=== PATIENT | female | born 1945 | race Caucasian/White ===

== ENCOUNTER 2022-05-21 08:01 | Outpatient (CLI) | payer MEDICARE, BC, SELFPAY | END 2022-05-21 08:02 | disposition home or self-care (01) | LOC: AMB 05-29 10:47 | PROVIDERS: PCP Internal Medicine; Visit Provider Family Medicine | DX: E11.649 Type 2 diabetes mellitus with hypoglycemia without coma (principal); R53.1 Weakness | CPT/HCPCS: A0998 ==

== ENCOUNTER 2022-06-16 15:15 | Outpatient (CLI) | payer MEDICARE, BC, SELFPAY ==
[2022-06-16 18:52] LABS: Albumin* 4.3 g/dL (3.3-5.0); Chloride* 104 mmol/L (96-114); Potassium* 4.5 mmol/L (3.6-5.1); Sodium* 139 mmol/L (135-149)
[2022-06-16 18:55] LABS: Alanine Aminotransferase* 11 U/L (4-35); Alkaline Phosphatase* 68 U/L (40-150); Aspartate Amino Transferase* 14 U/L (12-35); Bilirubin Total* 0.2 mg/dL (0.1-1.5); Blood Urea Nitrogen* 17 mg/dL (7-30); Carbon Dioxide* 25 mmol/L (20-32); Cholesterol* 181 mg/dL (90-199); Creatinine* 0.8 mg/dL (0.5-1.5); Estimated Glomerular Filt Rate 76 ml/min; Glucose* 116 mg/dL (60-115); Total Protein* 7.2 g/dL (6.0-8.3); Triglycerides* 287 mg/dL (40-149)
[2022-06-16 18:56] LABS: Calcium* 8.7 mg/dL (8.4-10.6); HDL Cholesterol* 39 mg/dL (>=50); LDL Cholesterol Calculated 85 mg/dL (<100)
== END 2022-06-16 15:16 | disposition home or self-care (01) ==
PROVIDERS: PCP Internal Medicine; Visit Provider Internal Medicine
DX: E11.9 Type 2 diabetes mellitus without complications (principal)
CPT/HCPCS: 80053; 80061; 82043; 82570

== ENCOUNTER 2022-12-21 00:18 | Outpatient (CLI) | payer MEDICARE, BC, SELFPAY | END 2022-12-21 00:19 | disposition home or self-care (01) | LOC: AMB 12-22 13:06 | PROVIDERS: PCP Internal Medicine; Visit Provider Family Medicine | DX: R53.1 Weakness (principal) | CPT/HCPCS: A0998 ==

== ENCOUNTER 2023-01-10 06:24 | Outpatient (CLI) | payer MEDICARE, BC, SELFPAY | END 2023-01-10 06:25 | disposition home or self-care (01) | LOC: AMB 01-11 19:30 | PROVIDERS: PCP Internal Medicine; Visit Provider Internal Medicine | DX: I49.9 Cardiac arrhythmia, unspecified (principal); I10 Essential (primary) hypertension; R42 Dizziness and giddiness | CPT/HCPCS: A0425; A0427 ==

== ENCOUNTER 2023-05-04 01:58 | Outpatient (CLI) | payer MEDICARE, BC, SELFPAY | END 2023-05-04 01:59 | disposition home or self-care (01) | LOC: AMB 05-07 11:26 | PROVIDERS: PCP Internal Medicine; Visit Provider Family Medicine | DX: E16.2 Hypoglycemia, unspecified (principal); R53.1 Weakness | CPT/HCPCS: A0429 ==

== ENCOUNTER 2023-05-09 18:42 | Emergency (ER) | payer MEDICARE, BC, SELFPAY ==
[2023-05-09 18:46] VITALS: BP 150/74; PULSE 70; RESP 16; TEMP 36.4; O2SAT 98
--- NOTE | 2023-05-09 19:20 | ED_ITS ---
HPI - General Adult General Date Seen: 05/09/23 Chief complaint: Back Injury/Pain Stated complaint: terrible back ache Time Seen by Provider: 05/09/23 18:59 Source: patient and family Mode of arrival: ambulatory Limitations: no limitations History of Present Illness HPI narrative: Patient is a 78-year-old here with her for evaluation of low back pain. She has dementia and her helps with the history. Apparently she has been complaining about some low back pain on and off for the past couple of days that was bothering her more tonight which is what prompted him to bring her in. She denies radiating pain, abdominal pain, fevers, night sweats, weakness, numbness, bowel or bladder changes, dysuria, or other acute symptoms. Pain is worsened with movement. She has taken some Tylenol which seems to help some. She does not have a history of significant problems with her back. No recent trauma. Related Data Home Medications Medication Instructions Recorded Confirmed dextrose 40 % oral gel (Glucose 10 g PO Q15M PRN 06/02/22 04/23/23 Gel) aspirin 81 mg tablet,delayed 81 mg PO QDAY 06/16/22 04/23/23 release melatonin 10 mg capsule 20 mg PO QHS 01/27/23 04/23/23 Previous Rx's Medication Instructions Recorded wheat dextrin 3 gram/3.8 gram oral 1.5 g PO QDAY #475 grams 07/22/22 powder (Benefiber Sugar Free (dextrin)) donepezil 10 mg tablet 10 mg PO QDAY #90 tabs 07/23/22 insulin syringe-needle U-100 1 mL #10 ea 12/11/22 30 gauge x 1/2 (UltiCare) metformin 1,000 mg tablet 1,000 mg PO BIDWMEAL #180 tabs 12/11/22 lisinopril 40 mg tablet 40 mg PO DAILY #90 tabs 02/27/23 insulin NPH isoph U-100 human 100 10 unit (0.1 mL) subcut .COMPLEX 04/02/23 unit/mL subcutaneous suspension #10 mL (Humulin N NPH U-100 Insulin (isophane susp)) lidocaine 5 % topical patch 1 patch topical DAILY #15 ea 05/09/23 Allergies Allergy/AdvReac Type Severity Reaction Status Date / Time No Known Drug Allergies Allergy Verified 05/09/23 18:51 Review of Systems Status of ROS: Reports: 10 or more systems reviewed and unremarkable except as noted in History and below PFSH [facility] Surgical History History of tubal ligation ?Z98.51 - Tubal ligation status (ICD-10) History of dilatation and curettage ?Z98.890 - Other specified postprocedural states (ICD-10) History of cataract surgery ?Z98.49 - Cataract extraction status, unspecified eye (ICD-10) History of blepharoplasty ?Z98.890 - Other specified postprocedural states (ICD-10) History of wrist fracture ?Z87.81 - Personal history of (healed) traumatic fracture (ICD-10) Social History Narrative: Hx tobacco use Smoking Status: Former smoker How often do you have a drink containing alcohol: never AUDIT-C Alcohol total score: 0 Non-prescribed substance use: denies use Little interest or pleasure in doing things: not at all Feeling down, depressed, or hopeless: not at all Exam Narrative: Exam Narrative: Vital signs as noted above. In general, an alert, nontoxic elderly woman, she is seated on the edge of the bed. Shifts position without difficulty, was ambulatory to the bathroom. Head: Normocephalic, atraumatic. Eyes: Pupils are equal reactive. Extraocular movements are full. Conjunctivae are normal. ENT: Mucous membranes are moist. Throat is normal. Neck: Supple without lymphadenopathy. Heart: Regular rate and rhythm. No murmur or rub. Lungs: Clear bilaterally. No increased work of breathing, crackles or wheezes. Abdomen: Soft and nontender. No organomegaly. Back: She has some tenderness diffusely across the low back. Extremities: Well perfused. No edema. No calf tenderness. Pulses intact. Neurologic: Patient is alert and oriented to person. Answers questions appropriately. Speech is fluent. Face is symmetric. Moves all extremities equally. Affect: Normal. Skin: Warm and dry. Well perfused. Const: Vital Signs, click to edit/add: Vital Signs - 24 hr 05/09/23 18:46 Temperature 97.5 F L Pulse Rate [Left P ulse Oximeter] 70 Respiratory Rate 16 Blood Pressure [Ri ght Upper Arm] 150/74 H Pulse Oximetry 98 Oxygen Delivery Me thod Room Air Documenting provider has reviewed patient's vital signs: yes Course Course Hospital Course: Given her age and dementia, I am going to check some basic labs, CBC, inflammatory markers, UA. Pain seems to be most likely musculoskeletal in nature without evidence of radiculopathy or red flags on history suggesting she needs urgent imaging. Her does not think she would do well with any stronger pain medications and I agree. Consider lidocaine patch to see if we can get more pain relief that way assuming workup is negative. Labs here are unremarkable, we attempted to get a urine sample couple of times unsuccessfully and she did not want a cath specimen. She does not have any urinary symptoms, does not have flank pain, pain seems to be musculoskeletal. Her white blood cell count is normal at 5.7, mild anemia with hemoglobin of 10.9. Metabolic panel is normal, BUN creatinine are normal, blood sugar is 180 she does have a history of diabetes. Her CRP is less than 0.5. No sign of infection, significant inflammatory changes, neurologic changes. Overall, I think it is reasonable to let her go home with supportive management. Discussed if she starts to develop urinary symptoms or has fevers severe pain etcetera she should be seen again otherwise I would recommend primary care follow-up if not improving over the next week or 2. Vital Signs Vital signs: Initial Vital Signs Temperature 97.5 F L 05/09/23 18:46 Temperature Source Temporal Artery Scan 05/09/23 18:46 Pulse Rate 70 05/09/23 18:46 Respiratory Rate 16 05/09/23 18:46 Blood Pressure 150/74 H 05/09/23 18:46 Blood Pressure Mean 99 05/09/23 18:46 Blood Pressure Position Sitting 05/09/23 18:46 Pulse Oximetry 98 05/09/23 18:46 Oxygen Delivery Method Room Air 05/09/23 18:46 Vital Signs Temperature 97.5 F L 05/09/23 18:46 Pulse Rate 70 05/09/23 18:46 Respiratory Rate 16 05/09/23 18:46 Blood Pressure 150/74 H 05/09/23 18:46 Pulse Oximetry 98 05/09/23 18:46 Oxygen Delivery Method Room Air 05/09/23 18:46 Temperature 97.5 F L 05/09/23 18:46 Pulse Rate 70 05/09/23 18:46 Respiratory Rate 16 05/09/23 18:46 Blood Pressure 150/74 H 05/09/23 18:46 Pulse Oximetry 98 05/09/23 18:46 Oxygen Delivery Method Room Air 05/09/23 18:46 Medical Decision Making Lab Data Labs: Lab Results 05/09/23 Range/Units 19:32 WBC 5.69 (4.50-11.00) K/uL RBC 3.75 L (4.00-5.20) m/uL Hgb 10.9 L (12.0-16.0) gm/dL Hct 34.1 (33.0-51.0) % MCV 91 (80-100) fL MCH 29 (26-34) pg MCHC 32 (32-36) gm/dL RDW Coeff of Dottie 13.1 (11.5-15.5) % Plt Count 377 (140-440) K/uL Neut % (Auto) 42.7 (42.0-72.0) % Lymph % (Auto) 48.3 H (20-44) % [place] % (Auto) 7.4 (0.0-11.0) % Eos % (Auto) 1.1 (0.0-7.0) % Baso % (Auto) 0.5 (0.0-3.0) % Neut # (Auto) 2.43 (1.7-7.0) K/uL Lymph # (Auto) 2.70 (0.90-2.90) K/uL [place] # (Auto) 0.40 (0.00-0.90) K/UL Eos # (Auto) 0.06 (0.00-0.50) K/uL Baso # (Auto) 0.03 (0.00-0.30) K/uL Abs Immat Gran (auto) 0.00 (0.00-0.30) K/uL Imm/Tot Granulo (auto) 0.0 % ESR 6 (2-20) mm/hr Sodium 138 (135-149) mmol/L Potassium 4.5 (3.6-5.1) mmol/L Chloride 104 (96-114) mmol/L Carbon Dioxide 25 (20-32) mmol/L BUN 28 (7-30) mg/dL Creatinine 1.0 (0.5-1.5) mg/dL Estimated GFR 58 ml/min Glucose 180 H (60-115) mg/dL Calcium 8.6 (8.4-10.6) mg/dL C-Reactive Protein < 0.5 L (0.5-1.0) mg/dL Discharge Plan Discharge Clinical Impression: Low back pain Patient Disposition: Home w/ Parent or Adult Condition: Stable Instructions: Acute Low Back Pain (ED) Additional Instructions: Continue with Tylenol, 1000 mg 3 times daily. Lidocaine patches as prescribed. If urinary symptoms develop, return or see your clinic to have a urine sample checked as we were not able to do that tonight. For new symptoms such as severe uncontrolled pain, fevers, weakness, return at any time. Primary care follow-up if not improving over the next 1-2 weeks. Prescriptions: New lidocaine 5 % adhesive patch,medicated 1 patch topical DAILY Qty: 15 0RF Rx Instructions: leave on most painful area for up to 12 hrs No Action melatonin 10 mg capsule 20 mg PO QHS aspirin 81 mg tablet,delayed release (DR/EC) 81 mg PO QDAY dextrose [Glucose Gel] 40 % gel 10 g PO Q15M PRN Rx Instructions: until symptoms of low blood sugar are controlled Benefiber Sugar Free (dextrin) 3 gram/3.8 gram powder 1.5 g PO QDAY Qty: 475 3RF Rx Instructions: mix into at least 4 oz water or juice before administering donepezil 10 mg tablet 10 mg PO QDAY Qty: 90 3RF metformin 1,000 mg tablet 1,000 mg PO BIDWMEAL Qty: 180 3RF Patient Comments: TAKE ONE TABLET BY MOUTH TWICE A DAY WITH MEALS (DME) insulin syringe-needle U-100 [UltiCare] 1 mL 30 gauge x 1/2 syringe See Rx Instructions .ROUTE .MEDSUPPLY Qty: 10 12RF Rx Instructions: As directed lisinopril 40 mg tablet 40 mg PO DAILY Qty: 90 1RF Humulin N NPH U-100 Insulin 100 unit/mL suspension 10 unit subcut .COMPLEX Qty: 10 2RF Rx Instructions: 10 units subcutaneously QAM, QPM; Follow Up/Referrals: Monika Del Rio MD [Primary Care Provider] - Stand Alone Forms: [facility] Info Instructions
[2023-05-09 19:35] LABS: Basophils Absolute Auto 0.03 K/uL (0.00-0.30); Basophils Percent Auto 0.5 % (0.0-3.0); Eosinophils Absolute Auto 0.06 K/uL (0.00-0.50); Eosinophils Percent Auto 1.1 % (0.0-7.0); Hematocrit 34.1 % (33.0-51.0); Hemoglobin* 10.9 gm/dL (12.0-16.0); Lymphocytes Percent Auto 48.3 % (20-44); Mean Corpuscular HGB Conc 32 gm/dL (32-36); Mean Corpuscular Hemoglobin 29 pg (26-34); Mean Corpuscular Volume 91 fL (80-100); Monocytes Percent Auto 7.4 % (0.0-11.0); Neutrophils Absolute Auto 2.43 K/uL (1.7-7.0); Neutrophils Percent Auto 42.7 % (42.0-72.0); Platelet Count* 377 K/uL (140-440); RDW Coefficient of Variation % 13.1 % (11.5-15.5); Red Blood Count 3.75 m/uL (4.00-5.20); White Blood Count* 5.69 K/uL (4.50-11.00)
[2023-05-09 19:37] LABS: Slide Review Reflex No
[2023-05-09 19:49] LABS: Chloride* 104 mmol/L (96-114); Sodium* 138 mmol/L (135-149)
[2023-05-09 19:50] LABS: Potassium* 4.5 mmol/L (3.6-5.1)
[2023-05-09 19:52] LABS: Estimated Glomerular Filt Rate 58 ml/min
[2023-05-09 19:53] LABS: Blood Urea Nitrogen* 28 mg/dL (7-30); Carbon Dioxide* 25 mmol/L (20-32); Glucose* 180 mg/dL (60-115)
[2023-05-09 19:54] LABS: Calcium* 8.6 mg/dL (8.4-10.6)
[2023-05-09 19:57] LABS: C Reactive Protein* < 0.5 mg/dL (0.5-1.0)
[2023-05-09 20:15] LABS: Erythrocyte SedimentationRate* 6 mm/hr (2-20)
[2023-05-09] MEDS: LIDOCAINE 5% PATCH 1 PATCH TRANSDERMA (20:38)
== END 2023-05-09 20:54 | disposition home or self-care (01) ==
PROVIDERS: Emergency Provider Emergency Medicine; PCP Internal Medicine
DX: M54.50 Low back pain, unspecified (principal)
CPT/HCPCS: 36415; 80048; 81001; 85025; 85651; 86140; 99283; 99284; A9270

== ENCOUNTER 2023-05-10 15:28 | Emergency (ER) | payer MEDICARE, BC, SELFPAY ==
[2023-05-10 15:41] VITALS: BP 146/71; PULSE 83; RESP 15; TEMP 36.1; O2SAT 99; BMI 26.0
--- NOTE | 2023-05-10 16:05 | ED_ITS ---
HPI - Headache General Chief Complaint: Headache/Migraine Stated Complaint: headache Time Seen by Provider: 05/10/23 15:29 History of Present Illness HPI Narrative: This 78-year-old female comes in reporting headache. She has significant dementia and her story is not very clear as result. She was seen yesterday in this emergency department because of back pain. She had labs done at that time which returned with reassuring results. She was treated for back pain and she states that that is better now. She complains of pain in the frontal part of her head currently. She does not report any neck pain. She arrives with normal vital signs. Related Data Home Medications Medication Instructions Recorded Confirmed dextrose 40 % oral gel (Glucose 10 g PO Q15M PRN 06/02/22 04/23/23 Gel) aspirin 81 mg tablet,delayed 81 mg PO QDAY 06/16/22 04/23/23 release melatonin 10 mg capsule 20 mg PO QHS 01/27/23 04/23/23 Previous Rx's Medication Instructions Recorded wheat dextrin 3 gram/3.8 gram oral 1.5 g PO QDAY #475 grams 07/22/22 powder (Benefiber Sugar Free (dextrin)) donepezil 10 mg tablet 10 mg PO QDAY #90 tabs 07/23/22 insulin syringe-needle U-100 1 mL #10 ea 12/11/22 30 gauge x 1/2 (UltiCare) metformin 1,000 mg tablet 1,000 mg PO BIDWMEAL #180 tabs 12/11/22 lisinopril 40 mg tablet 40 mg PO DAILY #90 tabs 02/27/23 insulin NPH isoph U-100 human 100 10 unit (0.1 mL) subcut .COMPLEX 04/02/23 unit/mL subcutaneous suspension #10 mL (Humulin N NPH U-100 Insulin (isophane susp)) lidocaine 5 % topical patch 1 patch topical DAILY #15 ea 05/09/23 Allergies Allergy/AdvReac Type Severity Reaction Status Date / Time No Known Drug Allergies Allergy Verified 05/09/23 18:51 Review of Systems Status of ROS: Reports: 10 or more systems reviewed and unremarkable except as noted in History and below Narrative: Review of systems is limited given the patient's dementia. PFSH [facility] Surgical History History of tubal ligation ?Z98.51 - Tubal ligation status (ICD-10) History of dilatation and curettage ?Z98.890 - Other specified postprocedural states (ICD-10) History of cataract surgery ?Z98.49 - Cataract extraction status, unspecified eye (ICD-10) History of blepharoplasty ?Z98.890 - Other specified postprocedural states (ICD-10) History of wrist fracture ?Z87.81 - Personal history of (healed) traumatic fracture (ICD-10) Social History Narrative: Hx tobacco use Smoking Status: Former smoker How often do you have a drink containing alcohol: never AUDIT-C Alcohol total score: 0 Non-prescribed substance use: denies use Little interest or pleasure in doing things: not at all Feeling down, depressed, or hopeless: not at all Exam Narrative: Exam Narrative: Constitutional: Well-developed, well-nourished, no acute distress. HEENT: Normocephalic, atraumatic. Neck: Normal range of motion. Nontender. Supple. Heart: Regular. No murmurs. Normal rate. Intact distal pulses. Lungs: Clear to auscultation. No chest discomfort. No wheezes, rhonchi, or rales. Abdomen: Normal bowel sounds. Nontender. No rebound tenderness. Genitalia: Deferred. Back: No midline tenderness. Normal range of motion. Extremities: Normal range of motion. No injury. Skin: Intact. No rash. Warm. No erythema or pallor. Neurologic: No altered sensation. No weakness. Alert and oriented. Psychiatric: No suicidality. No anxiety or depression. No insomnia. Nursing notes and vitals signs are reviewed. Const: Vital Signs, click to edit/add: Vital Signs - 24 hr 05/10/23 15:41 Temperature 96.9 F L Pulse Rate [Pulse Oximeter] 83 Respiratory Rate 15 Blood Pressure [Ri ght Upper Arm] 146/71 H Pulse Oximetry 99 Course Vital Signs Vital signs: Initial Vital Signs Temperature 96.9 F L 05/10/23 15:41 Temperature Source Temporal Artery Scan 05/10/23 15:41 Pulse Rate 83 05/10/23 15:41 Respiratory Rate 15 05/10/23 15:41 Blood Pressure 146/71 H 05/10/23 15:41 Blood Pressure Mean 96 05/10/23 15:41 Pulse Oximetry 99 05/10/23 15:41 Vital Signs Temperature 96.9 F L 05/10/23 15:41 Pulse Rate 83 05/10/23 15:41 Respiratory Rate 15 05/10/23 15:41 Blood Pressure 146/71 H 05/10/23 15:41 Pulse Oximetry 99 05/10/23 15:41 Temperature 96.9 F L 05/10/23 15:41 Pulse Rate 83 05/10/23 15:41 Respiratory Rate 15 05/10/23 15:41 Blood Pressure 146/71 H 05/10/23 15:41 Pulse Oximetry 99 05/10/23 15:41 MDM - Headache MDM Narrative Medical decision making narrative: This patient comes in with her reporting a headache as described above. She states she does not normally get headaches. She does have dementia and is a rather poor historian. Her states that they when out to walk the dog and she turned around and went back in because of her headache. She is not showing any neurologic deficits. I did order CT scan of her head which returns with no acute findings. The patient did receive an intramuscular injection of Toradol 15 mg and an oral tablet of Zofran 4 mg. She is saying that she is feeling much better. At the time of discharge the patient appears safe for outpatient management. The treatment plan is reviewed along with written and verbal return precautions. Reasons to return and the importance of close followup were also reviewed. Imaging Data CT scan - head: Radiologist's impression: No acute intracranial process identified. Discharge Plan Discharge Clinical Impression: Headache Patient Disposition: Home w/ Parent or Adult Condition: Improved Additional Instructions: Continue current plans. Use [id number] medicines as needed and directed. Follow up with MD or return if worsening. Prescriptions: No Action melatonin 10 mg capsule 20 mg PO QHS aspirin 81 mg tablet,delayed release (DR/EC) 81 mg PO QDAY lidocaine 5 % adhesive patch,medicated 1 patch topical DAILY Qty: 15 0RF Rx Instructions: leave on most painful area for up to 12 hrs dextrose [Glucose Gel] 40 % gel 10 g PO Q15M PRN Rx Instructions: until symptoms of low blood sugar are controlled Benefiber Sugar Free (dextrin) 3 gram/3.8 gram powder 1.5 g PO QDAY Qty: 475 3RF Rx Instructions: mix into at least 4 oz water or juice before administering donepezil 10 mg tablet 10 mg PO QDAY Qty: 90 3RF metformin 1,000 mg tablet 1,000 mg PO BIDWMEAL Qty: 180 3RF Patient Comments: TAKE ONE TABLET BY MOUTH TWICE A DAY WITH MEALS (DME) insulin syringe-needle U-100 [UltiCare] 1 mL 30 gauge x 1/2 syringe See Rx Instructions .ROUTE .MEDSUPPLY Qty: 10 12RF Rx Instructions: As directed lisinopril 40 mg tablet 40 mg PO DAILY Qty: 90 1RF Humulin N NPH U-100 Insulin 100 unit/mL suspension 10 unit subcut .COMPLEX Qty: 10 2RF Rx Instructions: 10 units subcutaneously QAM, QPM; Follow Up/Referrals: Monika Del Rio MD [Primary Care Provider] - Stand Alone Forms: [facility] Info Instructions
--- NOTE | 2023-05-10 16:17 | CRLHL7_ITS ---
For Patients: As a result of the Century Cures Act, medical imaging exams and procedure reports are released immediately into your electronic medical record. You may view this report before your referring provider. If you have questions, please contact your health care provider. INDICATION: Headache, dementia.. TECHNIQUE: Head CT without contrast. COMPARISON: None. FINDINGS: CSF spaces: Within normal limits for age. Brain parenchyma and extra-axial spaces: There are nonspecific low attenuation white matter changes consistent with chronic microvascular disease. Bilateral basal ganglia calcifications likely senescent. Mild diffuse atrophy. No sign of mass, hemorrhage, or midline shift. Skull base and calvarium: The visualized paranasal sinuses and mastoid air cells demonstrate no acute or significant findings. The visualized orbits are grossly unremarkable. No skull fractures. IMPRESSION: No acute intracranial process identified. Please note that all CT scans at this facility use dose modulation, iterative reconstruction, and/or weight-based dosing when appropriate to reduce radiation dose to as low as reasonably achievable. Dictated by Javier Walton MD @ 05/10/2023 5:34:18 PM (Electronically Signed)
[2023-05-10] MEDS: ONDANSETRON ODT 4 MG TAB PO (16:45)
[2023-05-10] MEDS: KETOROLAC 15 MG/ML inj IM (16:45)
== END 2023-05-10 17:53 | disposition home or self-care (01) ==
PROVIDERS: Emergency Provider Emergency Medicine Emergency Medical Services; PCP Internal Medicine
DX: R51.9 Headache, unspecified (principal)
CPT/HCPCS: 70450; 96372; 99284; A9270; J1885

== ENCOUNTER 2023-05-25 16:55 | Outpatient (CLI) | payer MEDICARE, BC, SELFPAY | END 2023-05-25 16:56 | disposition home or self-care (01) | LOC: AMB 05-28 11:35 | PROVIDERS: PCP Internal Medicine; Visit Provider Student in an Organized Health Care Education/Training Program | DX: F03.90 Unspecified dementia, unspecified severity, without behavioral disturbance, psychotic disturbance, mood disturbance, and anxiety (principal) | CPT/HCPCS: A0425; A0429 ==

== ENCOUNTER 2023-05-25 17:07 | Emergency (ER) | payer MEDICARE, BC, SELFPAY ==
[2023-05-25] VITALS (10 sets, daily range): BP systolic 128–132; BP diastolic 67–85; PULSE 58–65; RESP 14; TEMP 36.6; O2SAT 96–100
--- NOTE | 2023-05-25 17:29 | CRLHL7_ITS ---
For Patients: As a result of the Century Cures Act, medical imaging exams and procedure reports are released immediately into your electronic medical record. You may view this report before your referring provider. If you have questions, please contact your health care provider. INDICATION: Stroke-like symptoms. TECHNIQUE: CT of the head without contrast. Coronal and sagittal reformats are included. COMPARISON: Head CT from 05/10/2023. FINDINGS: No CT evidence of acute cortical infarct. No loss of rolon white matter differentiation. No hyperdense vessels to suggest intracranial thrombus. No acute intracranial hemorrhage. No mass effect or midline shift. No hydrocephalus or extra-axial collections. Patchy white matter hypoattenuation, typical for chronic microvascular ischemic changes. Moderate generalized parenchymal volume loss. Physiologic calcifications basal ganglia. No acute osseous abnormalities. Mastoid air cells and paranasal sinuses are clear. Normal soft tissues. IMPRESSION: IMPRESSION:1. No CT evidence of acute cortical infarct. No acute intracranial hemorrhage. No other acute intracranial findings. I discussed the findings directly with Dr. Chatman at 6:09 p.m., 05/25/2023. Please note that all CT scans at this facility use dose modulation, iterative reconstruction, and/or weight-based dosing when appropriate to reduce radiation dose to as low as reasonably achievable. Dictated by Juanito Escudero MD @ 05/25/2023 6:09:44 PM (Electronically Signed)
--- NOTE | 2023-05-25 17:34 | ED.NURSE ---
1710: Pt arrives by EMS and is immediately triaged. 1715: Stroke Code called with discretion of Sharon AHMADI Telestroke Neurologist MD abiola in room to assess pt. 1719: Pt in CT.
--- NOTE | 2023-05-25 17:36 | CRLHL7_ITS ---
For Patients: As a result of the Century Cures Act, medical imaging exams and procedure reports are released immediately into your electronic medical record. You may view this report before your referring provider. If you have questions, please contact your health care provider. DATE: 05/25/2023 CLINICAL HISTORY: Patient with focal neurological deficits. TECHNIQUE: Standard helical CT image acquisition through the intracranial circulation following intravenous administration of contrast material with bolus tracking. 2D and 3D MIP images for post-processing were performed and interpreted on an independent workstation and 3D images were permanently archived. COMPARISON: CT same day. FINDINGS: There is no cerebral aneurysm or large vessel occlusion. The right internal carotid artery is normal. The right middle cerebral artery and its branches are normal. The right anterior cerebral artery and its branches are normal. The left internal carotid artery is normal. The left middle cerebral artery and its branches are normal. The left anterior cerebral artery and its branches are normal. The anterior communicating artery is well visualized and appears normal. The right vertebral artery and PICA are normal. The left vertebral artery and PICA are normal. The vertebral arteries are codominant. The basilar artery is patent and appears normal. The right posterior cerebral artery is normal. The left posterior cerebral artery is normal. IMPRESSION: Normal CT angiogram of the head without intracranial aneurysm or other neurovascular abnormality. Please note that all CT scans at this facility use dose modulation, iterative reconstruction, and/or weight-based dosing when appropriate to reduce radiation dose to as low as reasonably achievable. Dictated by Vicente Boggs MD @ 05/26/2023 10:10:42 AM (Electronically Signed)
--- NOTE | 2023-05-25 17:36 | CRLHL7_ITS ---
For Patients: As a result of the Century Cures Act, medical imaging exams and procedure reports are released immediately into your electronic medical record. You may view this report before your referring provider. If you have questions, please contact your health care provider. DATE: 05/25/2023 CLINICAL HISTORY: Patient with focal neurological deficits. TECHNIQUE: Standard helical CT image acquisition of the neck up to the skull base after bolus intravenous contrast enhancement. 2D and 3D MIP images for post-processing were performed and interpreted on an independent workstation and 3D images were permanently archived. COMPARISON: CT same day. FINDINGS: The origins of the great vessels from the aortic arch are patent. The origin of the right vertebral artery is patent. The origin of the left vertebral artery is patent. The common carotid arteries are patent. There is a mild (<50%) stenosis at the origin of the right internal carotid artery by NASCET criteria. This is caused by calcified plaque with a <2mm residual lumen. There is plaque without stenosis at the origin of the left internal carotid artery by NASCET criteria. The rest of the cervical segments of the internal carotid arteries are patent up to the skull base. The right vertebral artery is dominant. The cervical segments of the vertebral arteries are patent up to the skull base. The visualized lung apices demonstrate a 1.1cm nodule in the right upper lobe. The thyroid gland is unremarkable. The soft tissues of the neck are unremarkable. There are degenerative changes in the cervical spine. IMPRESSION: 1. Mild (<50%) stenosis at the origin of the right internal carotid artery by NASCET criteria caused by calcified plaque with a <2mm residual lumen. 2. 1.1cm right upper lobe lung nodule. Further evaluation with a dedicated chest CT is recommended. Please note that all CT scans at this facility use dose modulation, iterative reconstruction, and/or weight-based dosing when appropriate to reduce radiation dose to as low as reasonably achievable. Dictated by Vicente Boggs MD @ 05/26/2023 10:07:53 AM (Electronically Signed)
--- NOTE | 2023-05-25 17:42 | ED.NURSE ---
now in room. He states that patient's cognition has been deteriorating over past several weeks and did not notice acute change today. Patient is now at her baseline.
--- NOTE | 2023-05-25 17:59 | ED_ITS ---
HPI - General Adult General Date Seen: 05/25/23 Chief complaint: Altered Mental Status Stated complaint: dementia/confusion Time Seen by Provider: 05/25/23 17:14 History of Present Illness HPI narrative: This is a 78-year-old female with a past medical history including dementia, frailty, type 2 diabetes, elevated BMI, hypertension, dyslipidemia, who was brought to the ER today by EMS with concern for possible stroke. Per EMS the the patient walked into the [place] today and was acting confused. She apparently could not say her name. When asked her what her name was she did not say what it was but she said a string on numbers instead. No other definite deficits. Additional history from the patient's is that she does have dementia. She has been more less her baseline lately. She did have a fall about 3 weeks ago when she was getting out of bed. No other definite change lately. No cough. No fever. No urinary symptoms. She has chronic diarrhea. One unusual behavior that occurred earlier this afternoon shortly after lunch was that she told her she had a stomach ache and need to have a bowel movement. Instead of going in the house to the bathroom where she normally goes, she went into the garage and defecated there. She was not incontinent, she pulled down her pants to defecate in the garage. No bloody or other unusual stool with that. No known urinary symptoms. She normally tries to walk their dog several times per day. She normally only goes around the block. Today he was cutting the grass. She told him she was going to take the dog for a walk and he told her not to go far. He thinks she probably got confused and walked a few blocks from their home, until she arrived at the [employer] store. feels that she is at her baseline in terms of her speech and level of orientation. Related Data Home Medications Medication Instructions Recorded Confirmed dextrose 40 % oral gel (Glucose 10 g PO Q15M PRN 06/02/22 04/23/23 Gel) aspirin 81 mg tablet,delayed 81 mg PO QDAY 06/16/22 04/23/23 release melatonin 10 mg capsule 20 mg PO QHS 01/27/23 04/23/23 Previous Rx's Medication Instructions Recorded wheat dextrin 3 gram/3.8 gram oral 1.5 g PO QDAY #475 grams 07/22/22 powder (Benefiber Sugar Free (dextrin)) donepezil 10 mg tablet 10 mg PO QDAY #90 tabs 07/23/22 insulin syringe-needle U-100 1 mL #10 ea 12/11/22 30 gauge x 1/2 (UltiCare) metformin 1,000 mg tablet 1,000 mg PO BIDWMEAL #180 tabs 12/11/22 lisinopril 40 mg tablet 40 mg PO DAILY #90 tabs 02/27/23 insulin NPH isoph U-100 human 100 10 unit (0.1 mL) subcut .COMPLEX 04/02/23 unit/mL subcutaneous suspension #10 mL (Humulin N NPH U-100 Insulin (isophane susp)) lidocaine 5 % topical patch 1 patch topical DAILY #15 ea 05/09/23 Allergies Allergy/AdvReac Type Severity Reaction Status Date / Time No Known Drug Allergies Allergy Verified 05/09/23 18:51 Review of Systems Narrative: Limited by dementia [facility] Surgical History History of tubal ligation ?Z98.51 - Tubal ligation status (ICD-10) History of dilatation and curettage ?Z98.890 - Other specified postprocedural states (ICD-10) History of cataract surgery ?Z98.49 - Cataract extraction status, unspecified eye (ICD-10) History of blepharoplasty ?Z98.890 - Other specified postprocedural states (ICD-10) History of wrist fracture ?Z87.81 - Personal history of (healed) traumatic fracture (ICD-10) Social History Narrative: Hx tobacco use Smoking Status: Former smoker How often do you have a drink containing alcohol: never AUDIT-C Alcohol total score: 0 Non-prescribed substance use: denies use Little interest or pleasure in doing things: not at all Feeling down, depressed, or hopeless: not at all Exam Narrative: Exam Narrative: Constitutional: Initial exam in the hallway and in the CT scanner. Appears well-developed and well-nourished. Alert. Pleasant and cooperates with simple tasks but seems mildly confused. She is oriented to person, but not place or date. Non toxic. HENT: Head: Atraumatic. Nose: Nose normal. Mouth/Throat: Oral mucosa is clear and moist. no trismus. Pharynx normal. Tonsils symmetric. No tonsillar enlargement, erythema, or exudate. Eyes: Conjunctivae normal. EOM normal. Pupils equal, round, and reactive to light. No scleral icterus. Neck: Normal range of motion. Neck supple. No tracheal deviation present. No JVD. Cardiovascular: Normal rate, regular rhythm. No gallop. No friction rub. Crescendo decrescendo systolic murmur heard. Symmetric radial artery pulses Pulmonary/Chest: Effort normal. No stridor. No respiratory distress. No wheezes. No rales. No rhonchi . No tenderness. Abdominal: Soft. Bowel sounds normal. No distension. No mass. No tenderness. No rebound. No guarding. Musculoskeletal: RUE: Normal range of motion. No tenderness. No deformity LUE: Normal range of motion. No tenderness. No deformity RLE: Normal range of motion. No edema. No tenderness. No deformity LLE: Normal range of motion. No edema. No tenderness. No deformity Lymph: No cervical adenopathy. Neuro: She is alert and oriented to person but not place or date. Speech is fluent. No slurred speech or word-finding difficulty or dysarthria. Mental status normal. Attention normal. Alert. GCS 15. Memory normal. Speech fluent. She is able to follow simple commands but seems somewhat confused by more complex commands. Her believes she is at her baseline.. Cranial Nerves intact II-XII except I did not formally test gag or visual acuity. EOMI. Palate elevates symmetrically and tongue protrudes in the midline. Strength: 5/5 trapezius on the right and left 5/5 deltoid on the right and left 5/5 biceps on the right and left 5/5 triceps on the right and left 5/5 pot liner on the right and left 5/5 thumb opposition on the right and le ft 5/5 finger abduction on the right and le ft 5/5 hip flexors (L3) on the right and le ft Of note, she had a transient cramp in her right quadriceps/thigh when she lifted her right leg off the bed. This resolved in her strength was normal. 5/5 quadriceps (L4) on the right and lef t 5/5 tibialis anterior on the right and l eft 5/5 EHL (L5) on the right and left 5/5 gastrocnemius (S1) on the right and left 5/5 hamstring on the right and left Sensation intact to light touch in both upper extremities (C4-T1) Sensation intact to light touch in Both lower extremities (L4-S1). Finger to nose and coordination normal. Gait normal. Skin: Skin is warm and dry. No rash noted. No pallor. Normal capillary refill. Psychiatric: Normal mood. Normal affect. Const: Vital Signs, click to edit/add: Vital Signs - 24 hr 05/25/23 17:10 05/25/23 17:36 05/25/23 17:57 Temperature 97.8 F Pulse Rate 65 Pulse Rate [Pulse Oximeter] 64 Respiratory Rate 14 Blood Pressure Blood Pressure [Le ft Upper Arm] 128/67 Pulse Oximetry 98 96 100 Oxygen Delivery Me thod Room Air 05/25/23 18:11 05/25/23 18:12 05/25/23 18:15 Temperature Pulse Rate 60 62 63 Pulse Rate [Pulse Oximeter] Respiratory Rate Blood Pressure 132/85 Blood Pressure [Le ft Upper Arm] Pulse Oximetry 100 100 99 Oxygen Delivery Me thod 05/25/23 18:30 05/25/23 18:45 05/25/23 19:00 Temperature Pulse Rate 58 L 62 62 Pulse Rate [Pulse Oximeter] Respiratory Rate Blood Pressure Blood Pressure [Le ft Upper Arm] Pulse Oximetry 98 99 100 Oxygen Delivery Me thod 05/25/23 19:15 Temperature Pulse Rate 62 Pulse Rate [Pulse Oximeter] Respiratory Rate Blood Pressure Blood Pressure [Le ft Upper Arm] Pulse Oximetry 99 Oxygen Delivery Me thod Course Course Hospital Course: In history history and physical exam performed as well we rushed the patient to CT scan for stroke protocol CT. By my exam no definite ongoing focal deficits but she did have confusion. Discussed with the stroke neurologist from [place]. She would agree with stat CT and also requests CT to look for any LV 0. Overall though patient's presentation would be more consistent with dementia or delirium rather than acute stroke. Patient's arrived and additional history was obtained from him. Recheck-back from CT scan. Alert. Repeat neuro exam performed. She remains confused. No focal deficits. agrees to laboratory workup for causes of delirium. Recheck-noncontrast head CT is negative. Stroke neurologist has reviewed the CTA indicates there is no large vessel occlusion. Formal radiology report about the CTA is still pending. Recheck-repeat exam performed. Doing well. Hungry. Discussed with patient, , and her daughter labs are reassuring. They are requesting discharge. We did check the patient's blood sugar because she is diabetic. Sugar was 79. She was eating peanut butter toast. Vital Signs Vital signs: Initial Vital Signs Temperature 97.8 F 05/25/23 17:10 Temperature Source Temporal Artery Scan 05/25/23 17:10 Pulse Rate 64 05/25/23 17:10 Respiratory Rate 14 05/25/23 17:10 Blood Pressure 128/67 05/25/23 17:10 Blood Pressure Mean 87 05/25/23 17:10 Blood Pressure Position Supine 05/25/23 17:10 Pulse Oximetry 98 05/25/23 17:10 Oxygen Delivery Method Room Air 05/25/23 17:10 Vital Signs Temperature 97.8 F 05/25/23 17:10 Pulse Rate 64 05/25/23 17:10 Respiratory Rate 14 05/25/23 17:10 Blood Pressure 128/67 05/25/23 17:10 Pulse Oximetry 98 05/25/23 17:10 Oxygen Delivery Method Room Air 05/25/23 17:10 Temperature 97.8 F 05/25/23 17:10 Pulse Rate 62 05/25/23 19:15 Respiratory Rate 14 05/25/23 17:10 Blood Pressure 132/85 05/25/23 18:12 Pulse Oximetry 99 05/25/23 19:15 Oxygen Delivery Method Room Air 05/25/23 17:10 Medical Decision Making MDM Narrative Medical decision making narrative: This is a 78-year-old female with a history of dementia brought to the ER today with concern for possible stroke. It turns out that she does have known dementia and she had taken her dog for a walk this afternoon gotten lost. She apparently walked into a local [employer] store and was behaving erratically, having trouble saying her name, so they called 911. Per paramedics she was having some trouble saying her name. By the time she arrived here in the ER her speech seems fluent but she did have residual confusion which is probably due to her dementia. I wonder if perhaps she was frightened overwhelmed by the circumstances which is why she had extra trouble saying her name on scene. Based on history we did do a stroke team activation. Stat noncontrast head CT is negative for intracranial bleeding or any obvious signs of acute infarct. CT angio shows no significant vascular occlusion. In consultation with Stroke Neurology we agree that the patient's symptoms were more consistent with dementia (or possibly dementia with superimposed delirium) rather than acute i schemic CVA. Would hold off on hospitalization or MRI for now Differential for possible delirium was broad. No evidence for hypoglycemia. Sodium normal. Kidney function normal. No evidence for cardiac ischemia or arrhythmia. Urinalysis negative. No clear fever. No recent cough or other symptoms of infection or COVID. In discussion with the patient's and daughter they feel that this is her baseline. She does walk the dog. It sounds like today she left the house while her is mowing the yd and he did realize how far she had gone. They do request help at home. Her is having trouble sleeping lately because he is worried about her getting up for wandering at night. Although she usually sleeps through the night. They want to take her home today and do not want her to stay in the hospital. Will place a consult order for social work for evaluation. They are also considering getting a Life Alert bracelet with a GPS tracker so they can monitor her more carefully. and daughter seem attentive and supportive. At this point this does not appear to be neglect or abuse. Lab Data Labs: Lab Results 05/25/23 05/25/23 Range/Units 17:37 17:40 WBC 5.57 (4.50-11.00) K/uL RBC 3.51 L (4.00-5.20) m/uL Hgb 10.3 L (12.0-16.0) gm/dL Hct 32.4 L (33.0-51.0) % MCV 92 (80-100) fL MCH 29 (26-34) pg MCHC 32 (32-36) gm/dL RDW Coeff of Dottie 13.6 (11.5-15.5) % Plt Count 361 (140-440) K/uL Neut % (Auto) 42.6 (42.0-72.0) % Lymph % (Auto) 46.9 H (20-44) % [place]ala % (Auto) 8.6 (0.0-11.0) % Eos % (Auto) 1.3 (0.0-7.0) % Baso % (Auto) 0.4 (0.0-3.0) % Neut # (Auto) 2.38 (1.7-7.0) K/uL Lymph # (Auto) 2.60 (0.90-2.90) K/uL [place] # (Auto) 0.50 (0.00-0.90) K/UL Eos # (Auto) 0.07 (0.00-0.50) K/uL Baso # (Auto) 0.02 (0.00-0.30) K/uL Abs Immat Gran (auto) 0.01 (0.00-0.30) K/uL Imm/Tot Granulo (auto) 0.2 % INR 0.91 (0.91-1.10) APTT 28 (23-33) Seconds Sodium 137 (135-149) mmol/L Potassium 4.3 (3.6-5.1) mmol/L Chloride 105 (96-114) mmol/L Carbon Dioxide 24 (20-32) mmol/L Anion Gap 8 (7-15) mEq/L BUN 17 (7-30) mg/dL Creatinine 0.8 (0.5-1.5) mg/dL Estimated GFR 76 ml/min Glucose 90 (60-115) mg/dL Calcium 8.3 L (8.4-10.6) mg/dL Troponin I < 0.01 L (0.01-0.04) ng/mL Urine Color Yellow (Yellow) Urine Appearance Clear (Clear) Urine pH 5.5 (5.0-8.5) Ur Specific [place] 1.010 (1.000-1.030) Urine Protein Negative (Negative) Urine Glucose (UA) Negative (Negative) Urine Ketones Negative (Negative) Urine Blood Negative (Negative) Urine Nitrite Negative (Negative) Urine Bilirubin Negative (Negative) Urine Urobilinogen 0.2 (0.2-1.0) Ur Leukocyte Esterase Trace A (Negative) Urine RBC 0-2 (0-2) Urine WBC 0-2 (0-5) Ur Squamous Epith Cells None (None-Few) Urine Bacteria None (None) SARS-CoV-2 (PCR) Negative SARS-CoV-2 (Negative) Influenza Type A (PCR) Negative PCR FLU A (Negative) Influenza Type B (PCR) Negative PCR FLU B (Negative) RSV (PCR) Negative PCR RSV (Negative) Imaging Data CT scan - head: Attestation: I have reviewed the pertinent imaging results. Radiologist's impression: IMPRESSION: IMPRESSION:1. No CT evidence of acute cortical infarct. No acute intracranial hemorrhage. No other acute intracranial findings. I discussed the findings directly with Dr. Chatman at 6:09 p.m., 05/25/2023. CT angio head and neck: Attestation: I have reviewed the pertinent imaging results. Radiologist's impression: Preliminary report FINDINGS: CTA head: No emergent large vessel occlusion or flow-limiting stenosis involving the major intracranial arteries. CTA neck: Mild stenosis of the internal carotid artery origins from atherosclerotic plaque. No high-grade stenosis involving the cervical arteries. ECG Data Attestation: I personally reviewed and interpreted this ECG as follows: Interpretation: Normal sinus rhythm . Rate 62 LA 182 QRS axis : Left axis deviation. No pathologic Q-waves. ST segment/T wave: . No acute ST segment elevation or depression. QTc: 408 Discharge Plan Discharge Clinical Impression: Dementia Patient Disposition: Home, Self-Care Condition: Stable Instructions: Dementia (ED) Additional Instructions: Please bring her back to the ER right away if you have Any concerns; especially if she has worsening confusion, complains of headache, chest pain, trouble breathing, develops a fever, or falls. Please recheck with her regular doctor within next 2-3 days. You may need of assistance with home care and could consider an assisted living or memory care unit. Please do not let her go walking alone Prescriptions: No Action melatonin 10 mg capsule 20 mg PO QHS aspirin 81 mg tablet,delayed release (DR/EC) 81 mg PO QDAY lidocaine 5 % adhesive patch,medicated 1 patch topical DAILY Qty: 15 0RF Rx Instructions: leave on most painful area for up to 12 hrs dextrose [Glucose Gel] 40 % gel 10 g PO Q15M PRN Rx Instructions: until symptoms of low blood sugar are controlled Benefiber Sugar Free (dextrin) 3 gram/3.8 gram powder 1.5 g PO QDAY Qty: 475 3RF Rx Instructions: mix into at least 4 oz water or juice before administering donepezil 10 mg tablet 10 mg PO QDAY Qty: 90 3RF metformin 1,000 mg tablet 1,000 mg PO BIDWMEAL Qty: 180 3RF Patient Comments: TAKE ONE TABLET BY MOUTH TWICE A DAY WITH MEALS (DME) insulin syringe-needle U-100 [UltiCare] 1 mL 30 gauge x 1/2 syringe See Rx Instructions .ROUTE .MEDSUPPLY Qty: 10 12RF Rx Instructions: As directed lisinopril 40 mg tablet 40 mg PO DAILY Qty: 90 1RF Humulin N NPH U-100 Insulin 100 unit/mL suspension 10 unit subcut .COMPLEX Qty: 10 2RF Rx Instructions: 10 units subcutaneously QAM, QPM; Follow Up/Referrals: Monika Del Rio MD [Primary Care Provider] - Stand [facility]one [facility] Info [facility]
[2023-05-25 18:03] LABS: Basophils Absolute Auto 0.02 K/uL (0.00-0.30); Basophils Percent Auto 0.4 % (0.0-3.0); Eosinophils Absolute Auto 0.07 K/uL (0.00-0.50); Eosinophils Percent Auto 1.3 % (0.0-7.0); Hematocrit 32.4 % (33.0-51.0); Hemoglobin* 10.3 gm/dL (12.0-16.0); Immature Granulocytes Abs Auto 0.01 K/uL (0.00-0.30); Immature Granulocytes Pct Auto 0.2 %; Lymphocytes Percent Auto 46.9 % (20-44); Mean Corpuscular HGB Conc 32 gm/dL (32-36); Mean Corpuscular Hemoglobin 29 pg (26-34); Mean Corpuscular Volume 92 fL (80-100); Monocytes Percent Auto 8.6 % (0.0-11.0); Neutrophils Absolute Auto 2.38 K/uL (1.7-7.0); Neutrophils Percent Auto 42.6 % (42.0-72.0); Platelet Count* 361 K/uL (140-440); RDW Coefficient of Variation % 13.6 % (11.5-15.5); Red Blood Count 3.51 m/uL (4.00-5.20); White Blood Count* 5.57 K/uL (4.50-11.00)
[2023-05-25 18:11] LABS: Slide Review Reflex No
[2023-05-25 18:13] LABS: Chloride* 105 mmol/L (96-114); Potassium* 4.3 mmol/L (3.6-5.1); Sodium* 137 mmol/L (135-149)
[2023-05-25 18:15] LABS: INR 0.91 (0.91-1.10); Prothrombin Time 12.8 Seconds
[2023-05-25 18:16] LABS: Anion Gap 8 mEq/L (7-15); Blood Urea Nitrogen* 17 mg/dL (7-30); Carbon Dioxide* 24 mmol/L (20-32); Creatinine* 0.8 mg/dL (0.5-1.5); Estimated Glomerular Filt Rate 76 ml/min; Glucose* 90 mg/dL (60-115); Partial Thromboplastin Time* 28 Seconds (23-33)
[2023-05-25 18:17] LABS: Calcium* 8.3 mg/dL (8.4-10.6)
[2023-05-25 18:33] LABS: Troponin I* < 0.01 ng/mL (0.01-0.04)
[2023-05-25 18:40] LABS: PCR FLU A Negative PCR FLU A (Negative); PCR FLU B Negative PCR FLU B (Negative); PCR RSV Negative PCR RSV (Negative)
[2023-05-25 18:42] LABS: SARS PCR* Negative SARS-CoV-2 (Negative)
[2023-05-25 18:45] LABS: Appearance Urine Clear (Clear); Bilirubin Urine Negative (Negative); Blood Urine Negative (Negative); Color Urine Yellow (Yellow); Glucose Urine Negative (Negative); Ketones Urine Negative (Negative); Leukocyte Esterase Urine Trace (Negative); Nitrite Urine Negative (Negative); Protein Urine Negative (Negative); Urobilinogen Urine 0.2 (0.2-1.0); pH Urine 5.5 (5.0-8.5)
[2023-05-25 19:02] LABS: RBC Urine 0-2 (0-2); WBC Urine 0-2 (0-5)
--- NOTE | 2023-05-25 19:48 | ED.NURSE ---
Call to social insurance analyst to arrange consult for later this week. VM left.
== END 2023-05-25 19:54 | disposition home or self-care (01) ==
PROVIDERS: Emergency Provider Emergency Medicine; PCP Internal Medicine
DX: F03.90 Unspecified dementia, unspecified severity, without behavioral disturbance, psychotic disturbance, mood disturbance, and anxiety (principal)
CPT/HCPCS: 36415; 70450; 70496; 70498; 80048; 81001; 82962; 84484; 85025; 85610; 85730; 87631; 93005; 94761; 99283; 99284; 99285; Q9967

== ENCOUNTER 2023-06-12 23:12 | Outpatient (CLI) | payer MEDICARE, BC, SELFPAY | END 2023-06-12 23:13 | disposition home or self-care (01) | LOC: AMB 06-17 12:09 | PROVIDERS: PCP Internal Medicine; Visit Provider Family Medicine | DX: S09.90XA Unspecified injury of head, initial encounter (principal); S89.91XA Unspecified injury of right lower leg, initial encounter; S89.92XA Unspecified injury of left lower leg, initial encounter; W18.30XA Fall on same level, unspecified, initial encounter; Y92.003 Bedroom of unspecified non-institutional (private) residence as the place of occurrence of the external cause | CPT/HCPCS: A0425; A0429 ==

== ENCOUNTER 2023-06-12 23:52 | Emergency (ER) | payer MEDICARE, BC, SELFPAY ==
--- NOTE | 2023-06-12 23:55 | ED.GENADULT ---
HPI - General Adult General Time Seen by Provider: 23:55 Date Seen: 06/12/23 Chief complaint: Fall/Minor Trauma Stated complaint: leg pain after fall Time Seen by Provider: 06/12/23 23:55 Source: patient, EMS, RN notes reviewed and old records reviewed Mode of arrival: EMS Limitations: no limitations History of Present Illness HPI narrative: 78-year-old female with history of dementia, hypertension, diabetes who presents today with pain after falling. History predominantly from EMT the nursing as patient has dementia, apparently fell at home. Concern for possible head injury, also complaining of bilateral leg pain but was able to get up and transfer with emergency veterinary assistant with AMS. Lives at home with spouse. Not on blood thinners. Related Data Home Medications Medication Instructions Recorded Confirmed dextrose 40 % oral gel (Glucose 10 g PO Q15M PRN 06/02/22 06/13/23 Gel) aspirin 81 mg tablet,delayed 81 mg PO QDAY 06/16/22 06/13/23 release melatonin 10 mg capsule 20 mg PO QHS 01/27/23 06/13/23 Previous Rx's Medication Instructions Recorded wheat dextrin 3 gram/3.8 gram oral 1.5 g PO QDAY #475 grams 07/22/22 powder (Benefiber Sugar Free (dextrin)) donepezil 10 mg tablet 10 mg PO QDAY #90 tabs 07/23/22 insulin syringe-needle U-100 1 mL #10 ea 12/11/22 30 gauge x 1/2 (UltiCare) metformin 1,000 mg tablet 1,000 mg PO BIDWMEAL #180 tabs 12/11/22 lisinopril 40 mg tablet 40 mg PO DAILY #90 tabs 02/27/23 insulin NPH isoph U-100 human 100 10 unit (0.1 mL) subcut .COMPLEX 04/02/23 unit/mL subcutaneous suspension #10 mL (Humulin N NPH U-100 Insulin (isophane susp)) lidocaine 5 % topical patch 1 patch topical DAILY #15 ea 05/09/23 Allergies Allergy/AdvReac Type Severity Reaction Status Date / Time No Known Drug Allergies Allergy Verified 06/12/23 23:58 Review of Systems Status of ROS: Reports: 10 or more systems reviewed and unremarkable except as noted in History and below PFSH PFSH Surgical History History of tubal ligation ?Z98.51 - Tubal ligation status (ICD-10) History of dilatation and curettage ?Z98.890 - Other specified postprocedural states (ICD-10) History of cataract surgery ?Z98.49 - Cataract extraction status, unspecified eye (ICD-10) History of blepharoplasty ?Z98.890 - Other specified postprocedural states (ICD-10) History of wrist fracture ?Z87.81 - Personal history of (healed) traumatic fracture (ICD-10) Social History Narrative: Hx tobacco use Smoking Status: Former smoker Do you use any of these nicotine containing products: None Second hand tobacco smoke exposure: No How often do you have a drink containing alcohol: never How often do you have six or more drinks on one occasion: Never AUDIT-C Alcohol total score: 0 Non-prescribed substance use: denies use Little interest or pleasure in doing things: not at all Feeling down, depressed, or hopeless: not at all service: No Exam Narrative: Exam Narrative: General: Well-developed and well-nourished, no acute distress Head: Atraumatic and normocephalic Eyes: Pupils are equal reactive, extraocular motions intact, conjunctiva clear ENT: External nose and ears are normal, posterior pharynx without erythema or exudate Neck: No midline cervical tenderness, full spontaneous range of motion the neck, trachea midline, no adenopathy Heart: Regular rate and rhythm no murmurs or thrills Lungs: Clear to auscultation bilaterally without wheezes or crackles Abdomen: Soft, nontender, nondistended with active bowel sounds Musculoskeletal: Bilateral knee tenderness, patient able to straight leg raise both legs without difficulty Neurologic: Awake, alert, and oriented x1, no gross focal neurologic deficits, cranial nerves intact as tested Psych: Mood and affect are appropriate Skin: No rashes Const: Vital Signs, click to edit/add: Vital Signs - 24 hr 06/13/23 00:04 06/13/23 01:20 Temperature 97 F L Pulse Rate [Pulse Oximeter] 97 62 Respiratory Rate 16 16 Blood Pressure [Ri ght Upper Arm] 141/101 H 158/68 H Pulse Oximetry 97 97 Oxygen Delivery Me thod Room Air Course Course ED Course: Patient seen examined, prior records reviewed. Patient presents today after a fall, sounds like she lost her balance. Has no complaints when I initially talked to her about during exam does note pain around the knees with straight leg raise bilaterally. No deformity, no joint effusion or warmth, minimal tenderness. X-rays of the knees are ordered. Per EMS, spouse was also worried about head injury. No external signs of head trauma and patient is not on thinners. CT scan is ordered. Consider CT scan of the neck but no midline tenderness, full spontaneous range of motion the neck and no complaints of pain. No shortness of breath, chest wall tenderness, subcutaneous air crepitus and lungs are clear. No abdominal tenderness. No tenderness palpation of the hips, no tenderness of the thoracic or lumbar spine. Reevaluation(s) Time of Reevaluation #1: 00:31 Reevaluation #1: Additional information from patient's spouse. Apparently they keep a bucket in the bedroom so the patient will not have to walk as far to go to the bathroom. She was on this pocket in tipped over when she fell. No loss of consciousness. Spouse feels like she is at her baseline mentation. CT scan independently interpreted by me demonstrates some mild ventriculomegaly. Time of Reevaluation #2: 00:46 Reevaluation #2: X-rays of the knees independently interpreted by me negative for acute findings. Patient ambulated in the emergency department stable for discharge. Vital Signs Vital signs: Initial Vital Signs Temperature 97 F L 06/13/23 00:04 Temperature Source Temporal Artery Scan 06/13/23 00:04 Pulse Rate 97 06/13/23 00:04 Pulse Rhythm Regular 06/13/23 00:04 Pulse Strength 3+ Normal 06/13/23 00:04 Respiratory Rate 16 06/13/23 00:04 Blood Pressure 141/101 H 06/13/23 00:04 Blood Pressure Mean 114 H 06/13/23 00:04 Blood Pressure Position Semi-Fowlers 06/13/23 00:04 Pulse Oximetry 97 06/13/23 00:04 Oxygen Delivery Method Room Air 06/13/23 00:04 Vital Signs Temperature 97 F L 06/13/23 00:04 Pulse Rate 97 06/13/23 00:04 Respiratory Rate 16 06/13/23 00:04 Blood Pressure 141/101 H 06/13/23 00:04 Pulse Oximetry 97 06/13/23 00:04 Oxygen Delivery Method Room Air 06/13/23 00:04 Temperature 97 F L 06/13/23 00:04 Pulse Rate 62 06/13/23 01:20 Respiratory Rate 16 06/13/23 01:20 Blood Pressure 158/68 H 06/13/23 01:20 Pulse Oximetry 97 06/13/23 01:20 Oxygen Delivery Method Room Air 06/13/23 00:04 Medical Decision Making Medical Records Medical records reviewed: Yes I reviewed the patient's medical records Lab Data Lab results reviewed: Yes I reviewed the patient's lab results Discharge Plan Discharge Clinical Impression: Contusion of knee, Dementia Patient Disposition: Home w/ Parent or Adult Condition: Stable Instructions: Contusion in Adults (ED) Additional Instructions: Tylenol as needed for pain Follow-up with your primary care provider this week Activity Level: Activity as Tolerated Discharge Diet: Diabetic Prescriptions: No Action melatonin 10 mg capsule 20 mg PO QHS aspirin 81 mg tablet,delayed release (DR/EC) 81 mg PO QDAY lidocaine 5 % adhesive patch,medicated 1 patch topical DAILY Qty: 15 0RF Rx Instructions: leave on most painful area for up to 12 hrs dextrose [Glucose Gel] 40 % gel 10 g PO Q15M PRN Rx Instructions: until symptoms of low blood sugar are controlled Benefiber Sugar Free (dextrin) 3 gram/3.8 gram powder 1.5 g PO QDAY Qty: 475 3RF Rx Instructions: mix into at least 4 oz water or juice before administering donepezil 10 mg tablet 10 mg PO QDAY Qty: 90 3RF metformin 1,000 mg tablet 1,000 mg PO BIDWMEAL Qty: 180 3RF Patient Comments: TAKE ONE TABLET BY MOUTH TWICE A DAY WITH MEALS (DME) insulin syringe-needle U-100 [UltiCare] 1 mL 30 gauge x 1/2 syringe See Rx Instructions .ROUTE .MEDSUPPLY Qty: 10 12RF Rx Instructions: As directed lisinopril 40 mg tablet 40 mg PO DAILY Qty: 90 1RF Humulin N NPH U-100 Insulin 100 unit/mL suspension 10 unit subcut .COMPLEX Qty: 10 2RF Rx Instructions: 10 units subcutaneously QAM, QPM; Follow Up/Referrals: Monika Del Rio MD [Primary Care Provider] - Stand Alone Forms: [facility] Info Instructions
--- NOTE | 2023-06-13 00:02 | CRLHL7_ITS ---
For Patients: As a result of the Cures Act, medical imaging exams and procedure reports are released immediately into your electronic medical record. You may view this report before your referring provider. If you have questions, please contact your health care provider. INDICATION: Trauma, fall. TECHNIQUE: Bilateral knee AP, lateral, and sunrise 3 views. COMPARISON: None. FINDINGS/IMPRESSION: Right knee: No acute fracture or dislocation. No joint effusion. Mild knee degenerative changes. Mild soft tissue swelling. Left knee: No acute fracture or dislocation. No joint effusion. Mild knee degenerative changes. Mild soft tissue swelling. Dictated by Rivera Santana MD @ 06/13/2023 1:32:44 AM (Electronically Signed)
--- NOTE | 2023-06-13 00:02 | CRLHL7_ITS ---
For Patients: As a result of the Century Cures Act, medical imaging exams and procedure reports are released immediately into your electronic medical record. You may view this report before your referring provider. If you have questions, please contact your health care provider. INDICATION: fall at 2300hrs, denies head pain, history of dementia. TECHNIQUE: Head CT without contrast. COMPARISON: None. FINDINGS: CSF spaces: Within normal limits for age. Brain parenchyma and extra-axial spaces: There are nonspecific low attenuation white matter changes consistent with chronic microvascular disease. Diffuse cerebral atrophy. Bilateral basal ganglia calcifications. No sign of mass, hemorrhage, or midline shift. Skull base and calvarium: The visualized paranasal sinuses and mastoid air cells demonstrate no acute or significant findings. The visualized orbits are grossly unremarkable. No skull fractures. IMPRESSION: No acute intracranial process identified. Please note that all CT scans at this facility use dose modulation, iterative reconstruction, and/or weight-based dosing when appropriate to reduce radiation dose to as low as reasonably achievable. Dictated by Javier Walton MD @ 06/13/2023 1:13:37 AM (Electronically Signed)
[2023-06-13 00:04] VITALS: BP 141/101; PULSE 97; RESP 16; TEMP 36.1; O2SAT 97; BMI 25.2
[2023-06-13] MEDS: ACETAMINOPHEN 500 MG TABLET 1000 MG PO (00:10)
--- NOTE | 2023-06-13 00:29 | ED.NURSE ---
Additional information regarding events obtained from pt's upon his arrival. reports that the patient isn't able to walk to the bathroom very well anymore, so they have placed a 5 gallon bucket next to the bed for her to use instead. Patient was attempting to use the bucket when she fell off. reports he does not think she hit her head. Informed of plan from Dr. Kim to take knee x-rays and perform head CT to rule out injury. verbalized understanding of plan.
[2023-06-13 01:20] VITALS: BP 158/68; PULSE 62; RESP 16; O2SAT 97
== END 2023-06-13 02:26 | disposition home or self-care (01) ==
LOC: ED 06-13 01:12
PROVIDERS: Emergency Provider Family Medicine; PCP Internal Medicine
DX: M25.562 Pain in left knee (principal); M25.561 Pain in right knee; W01.0XXA Fall on same level from slipping, tripping and stumbling without subsequent striking against object, initial encounter
CPT/HCPCS: 70450; 73562; 99283; 99284; A9270

== ENCOUNTER 2023-06-25 02:39 | Outpatient (CLI) | payer MEDICARE, BC, SELFPAY | END 2023-06-25 02:40 | disposition home or self-care (01) | LOC: AMB 06-26 22:23 | PROVIDERS: PCP Internal Medicine; Visit Provider Emergency Medicine | DX: E11.649 Type 2 diabetes mellitus with hypoglycemia without coma (principal); R41.82 Altered mental status, unspecified | CPT/HCPCS: A0998 ==

== ENCOUNTER 2023-07-14 15:15 | Outpatient (RCR) | payer MEDICARE, BC, SELFPAY | END 2023-11-11 23:59 | disposition home or self-care (01) | PROVIDERS: PCP Internal Medicine; Visit Provider Internal Medicine | DX: M54.2 Cervicalgia (principal); R51.9 Headache, unspecified; M62.81 Muscle weakness (generalized); Z74.09 Other reduced mobility; R29.3 Abnormal posture; Z51.89 Encounter for other specified aftercare | CPT/HCPCS: 80053; 80061; 97110; 97140; 97162 ==

== ENCOUNTER 2023-07-16 08:09 | Outpatient (CLI) | payer MEDICARE, BC, SELFPAY | END 2023-07-16 08:10 | disposition home or self-care (01) | LOC: NFLDREF 08:09 | PROVIDERS: PCP Internal Medicine; Visit Provider Internal Medicine | DX: E11.9 Type 2 diabetes mellitus without complications (principal); E78.5 Hyperlipidemia, unspecified; E66.9 Obesity, unspecified | CPT/HCPCS: 82043; 82570 ==

== ENCOUNTER 2023-10-30 10:32 | Outpatient (REF) | payer MEDICARE, BC, SELFPAY ==
[2023-10-30 11:05] LABS: Appearance Urine Clear (Clear); Bilirubin Urine Negative (Negative); Blood Urine Negative (Negative); Color Urine Yellow (Yellow); Glucose Urine Negative (Negative); Ketones Urine Negative (Negative); Leukocyte Esterase Urine 1+ (Negative); Nitrite Urine Negative (Negative); Protein Urine Negative (Negative); Specific Gravity Urine 1.015 (1.000-1.030); Urobilinogen Urine 0.2 (0.2-1.0); pH Urine 5.5 (5.0-8.5)
[2023-10-30 11:28] LABS: Bacteria Urine Moderate; Squamous Epithelial Cell Urine Few (None-Few)
== END 2023-10-30 10:33 | disposition home or self-care (01) ==
LOC: NPINS 10:32
PROVIDERS: PCP Internal Medicine; Visit Provider Nurse Practitioner Adult Health
DX: R30.0 Dysuria (principal); R39.15 Urgency of urination
CPT/HCPCS: 81003; 81015; 87077; 87086; 87186